=== PATIENT | male | born 1935 | race African-American/Black ===

== ENCOUNTER 2020-03-16 06:09 | Day surgery (SDC) | payer OTHER ==
[2020-03-15 14:06] VITALS: BMI 31.3
[2020-03-16 07:13] LABS: BASO % 1.2 % (0-2.0); EOS % 2.3 % (0-4.5); HEMATOCRIT 38.8 % (35.4-49); HEMOGLOBIN 12.7 GM/dL (11.7-16.9); MCH 29.5 pg (25.7-33.7); MCHC 32.8 g/dl (32.0-35.9); MEAN CELL VOLUME 90.1 fl (80-96); MEAN PLT VOLUME 7.7 fl (7.5-11.1); MONO % 8.7 % (3.8-10.2); NEUT % 58.8 % (42.8-82.8); PLATELET COUNT 174 K/MM3 (134-434); RBC 4.31 M/mm3 (4.00-5.60); RDW 12.8 % (11.9-15.9); WHITE BLOOD COUNT 4.1 K/mm3 (4.0-10.0)
[2020-03-16 07:14] LABS: INR 0.91 (0.83-1.09); PROTHROMBIN TIME (PATIENT) 10.7 SEC (9.7-13.0)
[2020-03-16 07:16] LABS: ACTIVATED PTT 31.4 SECONDS (25.2-36.5)
[2020-03-16 07:34] LABS: EPI CELLS 4 /uL (0-25.1); HYALINE CASTS 1 /uL (0-3.1); PH,URINE 5.5 (5.0-8.0); URINE APPEARANCE CLEAR; URINE BACTERIA 7 /uL (0-1359); URINE BILIRUBIN NEGATIVE (NEGATIVE); URINE COLOR YELLOW; URINE GLUCOSE (UA) NEGATIVE (NEGATIVE); URINE KETONE NEGATIVE (NEGATIVE); URINE LEUK ESTERASE NEGATIVE (NEGATIVE); URINE NITRITE NEGATIVE (NEGATIVE); URINE PROTEIN NEGATIVE (NEGATIVE); URINE RBC 16 /uL (0-23.9); URINE WBC 9 /uL (0-25.8)
--- NOTE | 2020-03-16 07:43 | HP ---
Satellite [facility] - Chief Complaint Chief Complaint: left cts - Past Medical History Allergies/Adverse Reactions: Allergies Allergy/AdvReac Type Severity Reaction Status Date / Time No Known Drug Allergies Allergy Verified 03/15/20 14:06 - Current Medications Current Medications: Home Medications Medication Instructions Recorded Valsartan [Diovan] 40 mg PO DAILY 03/15/20 Vitamin B Complex 1 each PO DAILY 03/15/20 Satellite Physical Exam - Physical Examination Vital Signs: Vital Signs Period Temp Pulse Resp BP Sys/Liang Pulse Ox Last 24 Hr 97.3 F-97.3 F 65-65 20-20 126-126/77-77 100 General Appearance: Well Nourished, Well Developed, Alert & Oriented x3 ENT: Clear Lung: Normal air movement Extremities: Other (left hand- + tinels, + phalens, EMG + cts) Neurological: Intact, Alert, Oriented Satellite Impression/Plan - Impression/Plan Impression: left cts Operative Procedure: left ctr Date to be Performed: 03/16/20
[2020-03-16 08:01] LABS: ALBUMIN 3.7 g/dl (3.4-5.0); BILIRUBIN,TOTAL 0.8 mg/dL (0.2-1); BLOOD UREA NITROGEN 14.1 mg/dL (7-18); CREATININE 1.2 mg/dL (0.55-1.3); POTASSIUM 4.3 mmol/L (3.5-5.1); TOT PROT 6.9 g/dl (6.4-8.2)
[2020-03-16] MEDS ORDERED: MIDAZOLAM HCL 2 MG/2 ML SINGLE DOSE VIAL ONE (09:21)
[2020-03-16] MEDS ORDERED: PROPOFOL 20 ML ONE (09:21)
[2020-03-16] MEDS ORDERED: LIDOCAINE HCL/PF 2% SDV 5ML VIAL ONE (09:22)
--- NOTE | 2020-03-16 09:29 | EKG ---
Test Reason : Blood Pressure : / mmHG Vent. Rate : 067 BPM Atrial Rate : 067 BPM P-R Int : 166 ms QRS Dur : 100 ms QT Int : 404 ms P-R-T Axes : 025 -34 -05 degrees QTc Int : 426 ms NORMAL SINUS RHYTHM LEFT AXIS DEVIATION ABNORMAL ECG NO PREVIOUS ECGS AVAILABLE Confirmed by MD MELISSA, MADAY ([id number]) on 03/16/2020 9:29:10 AM Referred By: Confirmed By:MADAY TORRES MD
[2020-03-16] MEDS ORDERED: ceFAZolin SODIUM 1 GM VIAL ONE ×2 (09:32)
[2020-03-16] MEDS ORDERED: LIDOCAINE HCL 1%, 10 MG/ML (20ML VIAL) NR ONE ×2 (09:36)
[2020-03-16] MEDS ORDERED: ceFAZolin 2 GRAM PREMIX BAG IVPB ONE (09:36)
[2020-03-16] MEDS ORDERED: BUPIVACAINE HCL/PF 0.5% (5MG/ML) 10 ML VIAL NR ONE (09:36)
[2020-03-16 11:50] VITALS: TEMP 96.8
[2020-03-16] MEDS ORDERED: ONDANSETRON 4 MG/2 ML VIAL IVPUSH PRN (12:01)
[2020-03-16] MEDS ORDERED: oxyCODONE HCL 5 MG TABLET PO PRN ×2 (12:01)
[2020-03-16] MEDS ORDERED: LACTATED RINGERS SOLUTION 1,000 ML IV SCH (12:15)
[2020-03-16 13:30] VITALS: BP 155/82; PULSE 64
--- NOTE | 2020-03-17 11:45 | SPEC ---
DATE OF OPERATION: 03/16/2020 PREOPERATIVE DIAGNOSES: 1. Left cubital tunnel syndrome. 2. Left carpal tunnel syndrome. 3. Left hand mass. POSTOPERATIVE DIAGNOSES: 1. Left cubital tunnel syndrome. 2. Left carpal tunnel syndrome. 3. Left hand mass. PROCEDURE: 1. Left subcutaneous ulnar nerve transposition. 2. Left carpal tunnel release and tenosynovectomy. 3. Left hand mass excision. SURGEON: Beatrice Brown MD DIRECTOR DATA: None. PRINTING EQUIPMENT MECHANIC APPRENTICE: DARREL Leon-NONPROFIT MANAGER DRAINS: None. COMPLICATIONS: None. SPECIMENS: 1. Tenosynovium, left wrist. 2. Left hand mass. BLOOD GIVEN: None. BLOOD LOSS: None. FLUID REPLACEMENT: Plasmalyte 1000 mL. INDICATIONS: This patient is an 84-year-old male with a preoperative diagnosis of severe left cubital tunnel syndrome, carpal tunnel syndrome, and a left hand mass. After understanding the potential risks, complications, alternatives, and benefits of surgical versus nonsurgical treatment, the patient elected to undergo this procedure. The patient specifically understands that likely not all of his symptoms will be relieved by this surgery. He might have a continuation of the numbness, tingling, pins and needles, weakness, atrophy, etc. In addition, he understands that we do not yet know what the precise diagnosis is of this left hand mass and may require future additional treatment. DESCRIPTION OF PROCEDURE: LMA anesthesia was induced. The entire case was done under 3.8 loupe magnification. He received 2 g of IV Ancef. 1. LEFT CARPAL TUNNEL RELEASE AND TENOSYNOVECTOMY: A marking pen was utilized to lyubov out a longitudinal incision in an already existing skin crease. Twenty mL of 0.5% Marcaine mixed with 1% lidocaine was injected in and around the surgical incision. The left upper extremity was elevated, exsanguinated with an Esmarch bandage and the tourniquet inflated to 250 mmHg. A No. 15 scalpel blade was utilized to cut down through the skin. Subcutaneous hemostasis was achieved with the bipolar cautery. Dissection was done through the superficial palmar fascia. Self-retaining retractors were placed into the wound. Under direct visualization, the transverse carpal ligament was transected with a No. 15 scalpel blade, exposing the median nerve and the contents of the carpal tunnel. The distal and proximal extents of the release were completed with a Littler scissor and checked with irrigation and my small finger. They were seen to be complete. Limited dissection was done on the radial side of the median nerve and more extensive dissection was done on the ulnar side of the median nerve. The patients nerve was seen to be quite compressed by epineurium and therefore a limited epineurotomy was performed. A Ragnell retractor was used to gently retract the median nerve in a radial direction. The patient had a lot of tenosynovitis and therefore a tenosynovectomy was performed off all 9 flexor tendons. This was passed off the field as tenosynovium left wrist. The floor of the carpal tunnel was checked. There were no abnormal masses or ganglion cysts. The area was copiously irrigated and washed out and closure begun. Undyed 4-0 Vicryl was used to close the deep dermal layer. Final skin reapproximation was done with horizontal mattress 4-0 nylon sutures. The area was then washed and dried, covered with Xeroform, 4 x 4's, fluffs between the fingers, Webril and a 4-inch plaster roll was utilized to make a volar splint, which was then wrapped with Dhara and Coban. 2. LEFT HAND MASS EXCISION: Secondarily, I did a left hand mass excision. There was a small fungating mass about 6 mm x 5 mm on the volar 1st webspace in the thenar eminence area. An elliptical incision was made with a No. 15 scalpel blade, and I was able to excise the mass in its entirety, including the full thickness of the skin. Once this was done, it was passed off the field as specimen No. 2, left hand mass. The area was copiously irrigated and washed out. Again, the area was explored. I did not see any other abnormal tissue. Subcutaneous fat looked completely normal. This incision was closed with one 4-0 undyed Vicryl stitch and then single interrupted nylons. 3. LEFT SUBCUTANEOUS ULNAR NERVE TRANSPOSITION: A curvilinear incision was marked out over the medial aspect of the medial epicondyle of the left elbow. Next, a mixture of 10 mL of 0.50% Marcaine and 1% lidocaine was injected in and around the surgical incision. The incision was made with a No. 15 scalpel blade. Subcutaneous hemostasis was achieved with the bipolar cautery. Dissection was done with the Metzenbaum scissors, cauterizing along the way. Weitlaner retractors were placed into the wound. Dissection was done down through the fat layer, cauterizing vessels, exposing the medial epicondyle. The anterior flap was raised underneath the adipose layer for later transposition. The medial epicondyle was exposed. First, the ulnar nerve was identified more proximally around the triceps. Once we dissected down to the nerve, the nerve was quite large, swollen, with significant points of compression. A circumferential dissection was done and a [place] drain was placed around it. Next, in a methodical fashion, circumferential dissection was done moving more distally, freeing up the ulnar nerve from surrounding soft tissue. The roof of the cubital tunnel was released. This was quite tight and the Huerta's ligament between the two heads of the FCU muscle was also identified and opened. There was one point of compression around the medial intramuscular septum. This was also decompressed with a No. 15 scalpel blade. I transposed the nerve. There were no points of compression. I completed the release distally and proximally with my index finger. I again transposed it. It looked good distally and proximally with no points of compression and the pressure was released. The area was copiously irrigated and washed out. Next, using 2-0 Vicryl suture, I tacked down the deep adipose layer to the medial epicondyle with the ulnar nerve transposed anterior to the axis of rotation of the medial epicondyle. I was able to floss the ulnar nerve. There were no points of compression. I then put in other 2-0 Vicryl sutures to hold the transposition position. It was checked along the way. It looked good. The deep adipose layer was closed with 2-0 Vicryl. The deep dermal layer was closed with 4-0 undyed Vicryl. The skin was reapproximated with a running subcuticular 4-0 Biosyn stitch. The area was then washed and dried, covered with Steri-Strips, 4 x 4's and Webril. A 5-inch Ortho-Glass posterior splint was applied, wrapped with Dhara and CHANEL bandages. The tourniquet was taken down after a total tourniquet time of 73 minutes. There were no complications during the case. The patient tolerated the procedure quite well and was brought to the ambulatory recovery room in stable condition. BEATRICE BROWN M.D. [id number]
--- NOTE | 2020-03-21 16:31 | PATH ---
Surgical Pathology Report Patient Name: CLAYTON FARFAN Med. Rec. #: [id number] /Age/Gender: 1935 (Age: 84) / M Account: [id number] Location: [facility] SURGICAL Taken: 03/16/2020 Received: 03/16/2020 Reported: 03/21/2020 Physicians: Oscar Barr M.D. Specimen(s) Received A: LEFT TENOSYNOVIUM B: HAND MASS Clinical History Carpal tunnel syndrome, cubital tunnel syndrome, hand mass Final Diagnosis A. TENOSYNOVIUM, LEFT, CARPAL TUNNEL RELEASE: BENIGN DENSE FIBROCONNECTIVE TISSUE. B. MASS, HAND, LEFT, EXCISION: SEBORRHEIC KERATOSIS, CLONAL, WITH FOCAL ACUTE INFLAMMATION. SEE COMMENT. Comment: Part B, Immunohistochemical stains performed and interpreted at [facility] show p63 is positive, while S100 is negative. Positive and negative controls (internal if applicable) show appropriate results. Electronically Signed Michelle Smith M.D. Gross Description A. Received in formalin labeled "left tenosynovium," is a 1.8 x 1.4 x 0.3 cm aggregate of multiple daily-yellow portions of soft tissue, consistent with tenosynovium. The specimen is entirely submitted in one cassette. B. Received in formalin labeled "mass left hand," is a 0.8 x 0.5 cm daily, elliptical, unoriented portion of skin excised to a depth of 0.3 cm. The epidermal surface displays a 0.7 x 0.4 cm raised lesion. The base is inked blue and the specimen is serially sectioned. The specimen is entirely submitted in 2 cassettes as follows: 1-undesignated tips; 2-central portion of specimen with lesion. DL/03/17/2020 saudi03/17/2020
== END 2020-03-16 13:40 | disposition home or self-care (01) ==
LOC: JASU-SURG 06:09
PROVIDERS: ATTEND Orthopaedic Surgery
PROC: 0JBK0ZZ Excision of Left Hand Subcutaneous Tissue and Fascia, Open Approach (ICD-10-PCS; 2020-03-16)
PROC: 01N50ZZ Release Median Nerve, Open Approach (ICD-10-PCS; principal; 2020-03-16 08:00)
PROC: 01N43ZZ Release Ulnar Nerve, Percutaneous Approach (ICD-10-PCS; 2020-03-16 08:00)
DX: G56.02 Carpal tunnel syndrome, left upper limb (principal); G56.22 Lesion of ulnar nerve, left upper limb; L82.0 Inflamed seborrheic keratosis
CPT/HCPCS: 36415; 80053; 81003; 85025; 85610; 85730; 88304-TC; 88305-TC; 88341-TC; 88342-TC; 93005; 93010; 94760